=== PATIENT | male | born 2000 | race Caucasian/White ===

== ENCOUNTER 2023-08-10 18:30 | Emergency (ER) | payer MEDICAID ==
[~2023-08-10] VITALS: Ht 190.5 cm; Wt 82.0 kg
[2023-08-10 19:23] VITALS: O2SAT 99
[2023-08-10] MEDS ORDERED: LIDO1ADH7 TP (20:14)
[2023-08-10] MEDS ORDERED: ACET-2708 MT (20:14)
[2023-08-10] MEDS ORDERED: INHA1INH6 MC (20:16)
[2023-08-10 21:23] VITALS: BP 125/61; PULSE 67; RESP 18; TEMP 98.5
== END 2023-08-10 21:24 | disposition home or self-care (01) ==
LOC: ER 18:30
DX: R07.81 Pleurodynia (principal); J45.909 Unspecified asthma, uncomplicated
CPT/HCPCS: 71101; 99283

== ENCOUNTER 2025-01-19 20:09 | Emergency (ER) | payer MEDICAID ==
[~2025-01-19] VITALS: Ht 188 cm; Wt 77.0 kg
[~2025-01-19 20:09] MED LIST: ACET-2708 MT; INHA1INH6 MC; LIDO1ADH7 TP
[2025-01-19 20:30] VITALS: O2SAT 95
[2025-01-19 21:07] VITALS: BP 119/89; TEMP 36.7
[2025-01-19] MEDS ORDERED: AMOX1TAB16 MT (23:39)
[2025-01-20] MEDS: DEXAMETHASONE 4MG TABLET PO ONE (00:18)
[2025-01-20] MEDS: ACETAMINOPHEN 500MG TABLET PO ONE (00:19)
[2025-01-20] MEDS: BACITRACIN ZINC OINT UDPKT TOP ONE (00:20)
[2025-01-20] MEDS: TETANUS, DIPHTHERIA, PERTUSSIS VAC/PF 0.5ML (>10YR OLD) IM ONE (00:30)
[2025-01-20] MEDS: IPRATROPIUM BROMIDE (0.02%) 0.5MG/2.5ML NEB HHN SCH (00:45)
[2025-01-20] MEDS: ALBUTEROL (0.083%) 2.5MG/3ML NEB HHN SCH (00:46)
[2025-01-20 00:51] VITALS: PULSE 75; RESP 20; O2SAT 96
[2025-01-20] MEDS ORDERED: BO1 TP (02:25)
== END 2025-01-20 02:39 | disposition home or self-care (01) ==
LOC: ER 20:09
DX: S61.257A Open bite of left little finger without damage to nail, initial encounter (principal); J45.909 Unspecified asthma, uncomplicated; W54.0XXA Bitten by dog, initial encounter; Y93.89 Activity, other specified; Y92.89 Other specified places as the place of occurrence of the external cause; Y99.8 Other external cause status
CPT/HCPCS: 71045; 99283; 90715; 94640; 90471; J8540; Z7610 ×3